=== PATIENT | female | born 1995 | race Caucasian/White ===

== ENCOUNTER 2016-10-23 20:07 | Outpatient (CLI) | payer MEDICAID ==
[~2016-10-23] VITALS: Ht 160 cm; Wt 63.9 kg
[~2016-10-23 20:07] MED LIST: NO MEDS
[2016-10-23 20:34] VITALS: BP 102/61; PULSE 73; RESP 18
[2016-10-23] MEDS ORDERED: FERR134T PO (20:37)
[2016-10-23] MEDS ORDERED: PRENAT PO (20:37)
[2016-10-23 21:39] LABS: ABNORMAL IP MESSAGE 1; BASOPHIL # 0.1 10^3/ul (0.0-0.1); BASOPHILS % 0.5 % (0.0-2.0); EOSINOPHILS # 0.1 10^3/ul (0.0-0.5); EOSINOPHILS % 0.9 % (0.0-7.0); HEMATOCRIT 35.9 % (37.0-47.0); HEMOGLOBIN 11.9 g/dl (12.0-16.0); LYMPHOCYTES # 1.5 10^3/ul (0.8-2.9); MEAN CORPUSCULAR HEMOGLOBIN 31.7 pg (29.0-33.0); MEAN CORPUSCULAR HGB CONC 33.1 g/dl (32.0-37.0); MEAN CORPUSCULAR VOLUME 95.7 fl (82.0-101.0); MEAN PLATELET VOLUME 10.9 fl (7.4-10.4); MONOCYTE # 0.7 10^3/ul (0.3-0.9); NEUTROPHIL # 8.6 10^3/ul (1.6-7.5); NEUTROPHILS % 74.4 % (39.0-77.0); PLATELET COUNT 179 10^3/UL (140-415); RED BLOOD COUNT 3.75 10^6/ul (4.20-5.40); WHITE BLOOD COUNT 11.6 10^3/ul (4.8-10.8)
[2016-10-23 21:47] LABS: POSITIVE DIFF @See below
--- NOTE | 2016-10-23 22:11 | RADRPT ---
PROCEDURE: ULTRASOUND BIOPHYSICAL PROFILE CLINICAL INDICATION: 21-year-old female in labor for viability. TECHNIQUE: Multiple sonographic images were obtained in order to perform a biophysical profile The images were reviewed on a PACS workstation. COMPARISON: None. FINDINGS: The cervix appears closed with a length of 3.6 cm. There is a single viable intrauterine gestation. There is a vertex presentation. Cardiac activity is present at 137 beats per minute. The placenta is anterior. The results of the biophysical profile are as follows: breathing movement = 2/2 Gross body movement = 2/2 tone = 2/2 Qualitative amniotic fluid volume = 2/2 Amniotic fluid index equals 17.3 cm. This yields a biophysical profile score of 8/8. IMPRESSION: Biophysical profile score is 8/8. .Baltazar Gaston MD, MD Date Time Electronically viewed and signed by .Baltazar Gaston MD, MD on 10/23/2016 22:10 ./
--- NOTE | 2016-10-23 22:13 | RADRPT ---
PROCEDURE: ULTRASOUND OBSTETRICAL CLINICAL INDICATION: 21-year-old female in labor for size and date determination. TECHNIQUE: Multiple sonographic images of the pelvis were obtained. The images were reviewed on a PACS workstation. COMPARISON: Ultrasound biophysical profile obtained concurrently. FINDINGS: There is a single viable intrauterine gestation. Cardiac activity is present with 139 beats per min [place]. There is a vertex presentation. Measurements were made in order to determine age. The res ults are as follows: BPD = 8.86 cm, HC = 31.53 cm, AC = 31.74 cm, FL = 6.98 cm. This yields and estimated gestational ag e of approximately 35 weeks 5 days. The estimated date of delivery is November 22, 2016. The EFW = 2741 +/- 411 g (6 lb 1 oz). The GP is 71%. The placenta is anterior. There is no evidence for an abruption or placenta previa. IMPRESSION: 1. Single viable intrauterine gestation of approximately 35 weeks 5 days with vertex presentation. The estimated date of delivery is November 22, 2016. 2. The estimated weight is 2741 +/- 411 g (6 lb 1 oz). The GP is 71%. .Baltazar Gaston MD, Date Time Electronically viewed and signed by .Baltazar Gaston MD, MD on 10/23/2016 22:13 .M/
[2016-10-23 23:06] LABS: ADD UMIC NO; UR ASCORBIC ACID NEGATIVE (NEGATIVE); UR BILIRUBIN (Dip) NEGATIVE (NEGATIVE); UR BLOOD (Dip) NEGATIVE (NEGATIVE); UR CLARITY CLEAR (CLEAR); UR COLOR YELLOW (YELLOW); UR GLUCOSE (Dip) NEGATIVE (NEGATIVE); UR KETONES (Dip) TRACE mg/dL (NEGATIVE); UR LEUKOCYTE ESTERASE (Dip) NEGATIVE Leu/ul (NEGATIVE); UR NITRITE (Dip) NEGATIVE (NEGATIVE); UR SPECIFIC GRAVITY (Dip) 1.016 (1.003-1.030); UR TOTAL PROTEIN (Dip) NEGATIVE (NEGATIVE); UR UROBILINOGEN (Dip) NEGATIVE (NEGATIVE)
[2016-10-23] MEDS ORDERED: BETAMET NA PHOS/AC(6 MG/ML) 5ML INJ IM ONE (23:30)
--- NOTE | 2016-10-24 01:42 | PN ---
Triage Information Date/Time 10/24/16 Reason for visit: Abd/pelvic pain Weeks of Gestation 34w6d /Para primigravida Diabetes: none Hypertention: none Objective Vital Signs Date Time Temp Pulse Resp B/P Pulse Ox O2 Delivery O2 Flow Rate FiO2 10/23/16 20:34 98.4 73 18 102/61 Room Air Heart Rate: 130's Contractions: 6-10 Minutes Apart Results/Medications Result Diagram: 10/23/162121 Results 24 hrs Laboratory Tests Test 10/23/16 21:22 10/23/16 22:00 White Blood Count 11.6 H Red Blood Count 3.75 L Hemoglobin 11.9 L Hematocrit 35.9 L Mean Corpuscular Volume 95.7 Mean Corpuscular Hemoglobin 31.7 Mean Corpuscular Hemoglobin Concent 33.1 Red Cell Distribution Width 13.0 Platelet Count 179 Mean Platelet Volume 10.9 H Neutrophils % 74.4 Lymphocytes % 13.0 L Monocytes % 6.0 Eosinophils % 0.9 Basophils % 0.5 Nucleated Red Blood Cells % 0.0 Neutrophils # 8.6 H Lymphocytes # 1.5 Monocytes # 0.7 Eosinophils # 0.1 Basophils # 0.1 Nucleated Red Blood Cells # 0.0 Urine Color YELLOW Urine Clarity CLEAR Urine pH 7.0 Urine Specific [place] 1.016 Urine Ketones TRACE A Urine Nitrite NEGATIVE Urine Bilirubin NEGATIVE Urine Urobilinogen NEGATIVE Urine Leukocyte Esterase NEGATIVE Urine Hemoglobin NEGATIVE Urine Glucose NEGATIVE Urine Total Protein NEGATIVE Imaging Results BPP 8/8 CVL 3.6 KATHRYN 17.3 EFW 2741 Disposition: Discharge Assessment/Plan A IUP 34w6d PTL P BMZ x1 given RTH for 2nd dose for BMZ tomorrow pm KRYSTAL MAYBERRY MD Oct 24, 2016 00:32
--- NOTE | 2016-10-24 02:23 | TRIAGE ---
OB Triage Datetime Report Generated by CPN: 10/24/2016 02:22 Datetime: 10/23/2016 20:41 Time of Arrival: 10/23/2016 19:55 EGA: 34.6 Arrived By: Wheelchair Arrived From: Home Chief Complaint: c/o cramping and back pain Movement: Present Contractions: Irregular Time Contractions Began: 10/23/2016 17:00 Contractions: q5 Rupture of Membranes: Denies Vaginal Bleeding: None Vaginal Discharge: Denies Recent Sexual Intercouse: Denies Abdominal Trauma: Not Applicable Patient Complaints: Cramping; Back Pain Time Provider Notified: 10/23/2016 20:53 Provider Notified: Dr Bean Initial Plan: EFM,UA,CBC,EFW,BPP,CVL Datetime: 10/23/2016 20:09 Stage of : OB Triage Maternal Assessment Level of Consciousness: Fully Conscious Headache: Denies Blurred Vision: No Respiratory Effort: Unlabored Nausea/Vomiting: Denies RUQ Epigastric Pain: Denies Facial Edema: None Labor Evaluation Frequency: placed Monitor Mode: External Resting Tone [place]: Relaxed Heart Rate FHR Baseline Rate: 135 Monitor Mode: External US Pain Assessment Pain Scale: 8 Pain Presence: Intermittent Pain Type: Cramping; Ache Pain Location: Abdomen; Back
== END 2016-10-23 23:45 | disposition home or self-care (01) ==
LOC: OBT 20:07 → L-D 20:09 → OBT 23:45
PROVIDERS: ATTEND Obstetrics & Gynecology
DX: O26.893 Other specified pregnancy related conditions, third trimester (principal); Z3A.34 34 weeks gestation of pregnancy; R10.2 Pelvic and perineal pain
CPT/HCPCS: 36415; 76815; 76817; 76818; 81003; 85025; Z7500; G0463

== ENCOUNTER 2016-10-25 00:01 | Outpatient (CLI) | payer MEDICAID ==
[~2016-10-25] VITALS: Ht 160 cm; Wt 63.9 kg
[~2016-10-25 00:01] MED LIST changes: +FERR134T PO; -NO MEDS; +PRENAT PO
[2016-10-25 00:46] VITALS: Ht 160 cm; Wt 63.9 kg
[2016-10-25 00:48] VITALS: BP 102/58; PULSE 81; RESP 18
[2016-10-25] MEDS ORDERED: CALC500T91 PO (00:56)
[2016-10-25] MEDS ORDERED: BETAMET NA PHOS/AC(6 MG/ML) 5ML INJ IM ONE (01:00)
--- NOTE | 2016-10-25 01:55 | TRIAGE ---
OB Triage Datetime Report Generated by CPN: 10/25/2016 01:55 Datetime: 10/25/2016 01:05 Stage of : OB Triage Datetime: 10/25/2016 01:02 Stage of : OB Triage Frequency: x4 Monitor Mode: External Duration (sec)2399: 50-100 Quality: Mild Pattern: Normal: <= 5 Contractions in 10 Minutes Resting Tone [place]: Relaxed FHR Baseline Rate: 125 Monitor Mode: External US Variability: Moderate 6-25 bpm Accelerations: 15X15 Decelerations: None Category: Category I Pain Scale: 0 Pain Presence: None/Denies Pain Type: N/A Pain Assessment Comments: Pt continues to deny pain Datetime: 10/25/2016 01:00 Stage of : OB Triage Datetime: 10/25/2016 00:35 Stage of : OB Triage Datetime: 10/25/2016 00:31 Stage of : OB Triage Datetime: 10/25/2016 00:13 Stage of : OB Triage Assessment Type: Triage Level of Consciousness: Fully Conscious DTR's/Clonus: DTRs 2+; No Clonus Headache: Denies Blurred Vision: No Respiratory Effort: Unlabored; Regular Rhythm; Equal Expansion Breath Sounds, Left: Clear and Equal Breath Sounds, Right: Clear and Equal Nausea/Vomiting: Denies RUQ Epigastric Pain: Denies Lower Extremities Edema: None Degree: None Upper Extremities Edema: None Degree: None Facial Edema: None Temperature Route: Oral History of Falling: (0) No Secondary Diagnosis: (0) No Ambulatory Aid: (0) Bedrest/Nurse Assist IV Therapy: (0) No Gait: (0) Normal/Bedrest/Immobile Mental Status: (0) Oriented to Own Ability Pain Scale: 0 Pain Presence: None/Denies Pain Type: N/A Datetime: 10/25/2016 00:12 Stage of : OB Triage Monitor Mode: External Contraction Comments: [place] applied FHR Baseline Rate: 120 Monitor Mode: External US Comments: EFM applied Datetime: 10/25/2016 00:10 Time of Arrival: 10/24/2016 23:50 EGA: 35.0 Arrived By: Ambulatory Arrived From: Home Chief Complaint: Came back for repeat Betamethasone #2 Movement: Present Contractions: Denies/Absent Rupture of Membranes: Denies Vaginal Bleeding: None Vaginal Discharge: Denies Abdominal Trauma: Not Applicable Patient Complaints: None Time Provider Notified: 10/25/2016 00:35 Provider Notified: Initial Plan: NST, Betamethasone #2 Datetime: 10/23/2016 23:26 Stage of : OB Triage Monitor Mode: External Quality: Mild Pattern: Normal: <= 5 Contractions in 10 Minutes Resting Tone [place]: Relaxed FHR Baseline Rate: 120 Monitor Mode: External US FHR Baseline Changes: No Baseline Change Variability: Moderate 6-25 bpm Accelerations: 15X15 Decelerations: None Category: Category I Pain Scale: 0 Pain Presence: None/Denies Pain Type: N/A Datetime: 10/23/2016 22:48 Stage of : OB Triage Frequency: 2-10 Monitor Mode: External Quality: Mild Pattern: Normal: <= 5 Contractions in 10 Minutes Resting Tone [place]: Relaxed FHR Baseline Rate: 125 Monitor Mode: External US Datetime: 10/23/2016 22:21 Stage of : OB Triage Quality: Moderate Pattern: Normal: <= 5 Contractions in 10 Minutes Resting Tone [place]: Relaxed FHR Baseline Rate: 130 Monitor Mode: External US FHR Baseline Changes: No Baseline Change Datetime: 10/23/2016 20:53 Stage of : OB Triage Frequency: 2-10 Monitor Mode: External Quality: Mild Pattern: Normal: <= 5 Contractions in 10 Minutes Resting Tone [place]: Relaxed FHR Baseline Rate: 130 Monitor Mode: External US FHR Baseline Changes: No Baseline Change Variability: Moderate 6-25 bpm Accelerations: 15X15 Decelerations: None Category: Category I Datetime: 10/23/2016 20:41 EGA: 34.6
--- NOTE | 2016-12-29 16:42 | QN ---
Documentation Comment iup 30 weeks pt here for rpt bms course vss exam wnl a/p iuo 30 weeks bms course ROSALIO TELLEZ MD Dec 29, 2016 16:42
== END 2016-10-25 01:15 | disposition home or self-care (01) ==
LOC: OBT 00:01 → L-D 00:02 → OBT 01:15
PROVIDERS: ATTEND Obstetrics & Gynecology
DX: O26.893 Other specified pregnancy related conditions, third trimester (principal); Z3A.35 35 weeks gestation of pregnancy
CPT/HCPCS: 96372; Z7500; G0463; J0702

== ENCOUNTER 2016-11-05 02:26 | Outpatient (CLI) | payer MEDICAID ==
[~2016-11-05] VITALS: Ht 160 cm; Wt 64.3 kg
[~2016-11-05 02:26] MED LIST changes: +CALC500T91 PO
[2016-11-05 03:03] VITALS: BP 110/62; PULSE 70; RESP 18; Ht 160 cm; Wt 64.3 kg
--- NOTE | 2016-11-05 03:35 | PN ---
Triage Information Date/Time Reason for visit: Uterine contractions Weeks of Gestation 36 weeks /Para Diabetes: none Hypertention: none Objective Vital Signs Date Time Temp Pulse Resp B/P Pulse Ox O2 Delivery O2 Flow Rate FiO2 11/05/16 03:03 98.6 70 18 110/62 95 Room Air Heart Rate: 120's Heart Rate Comments Category I Contractions: >10 Minutes Apart Exam Cervix 1 cm Disposition: Discharge Assessment/Plan Not in active labor D/C home JULIETTE WINSTON MD Nov 05, 2016 03:35
== END 2016-11-05 03:40 | disposition home or self-care (01) ==
LOC: OBT 02:26 → L-D 02:28 → OBT 03:40
PROVIDERS: ATTEND Obstetrics & Gynecology
DX: O62.9 Abnormality of forces of labor, unspecified (principal); Z3A.36 36 weeks gestation of pregnancy
CPT/HCPCS: G0463

== ENCOUNTER 2016-11-18 18:11 | Outpatient (CLI) | payer MEDICAID ==
[~2016-11-18] VITALS: Ht 160 cm; Wt 66.9 kg
[2016-11-18 18:21] VITALS: Ht 160 cm; Wt 66.9 kg
[2016-11-18 18:22] VITALS: BP 110/65; PULSE 67; RESP 18
--- NOTE | 2016-11-18 19:09 | RADRPT ---
PROCEDURE: US OB. CLINICAL INDICATION: Ruptured membranes. TECHNIQUE: Multiple sonographic images of the uterus were obtained. The images were revi ewed on a PACS workstation. COMPARISON: No prior studies are available for comparison. FINDINGS: There is a single live intrauterine gestation. heart rate is 129 beats per minute. Measurements were made in order to determine age. The results are as follows: BPD = 9.20 cm. HC = 33.05 cm. AC = 34.45 cm. FL = 7.33 cm. Estimated weight is 3358 +/- 504 grams. LMP growth percentile is 51%. Menstrual age by ultrasound dates is 37 weeks 5 days. The estimated date of delivery is 12/04/2016. Position is cephalic and placenta is anterior grade II. There is no evidence for an abruption or [place] previa. IMPRESSION: 1. Single live intrauterine gestation of 37 weeks 5 days menstrual age by ultrasound dates. 2. The estimated date of delivery is 12/04/2016. RPTAT: QQ .Renaldo Ellsworth MD, Date Time Electronically viewed and signed by .Renaldo Ellsworth MD, on 11/18/2016 19:09 .R/
--- NOTE | 2016-11-18 19:11 | RADRPT ---
PROCEDURE: US biophysical profile. CLINICAL INDICATION: Decreased motion. TECHNIQUE: Multiple sonographic images of the uterus were obtained. The images were revi ewed on a PACS workstation. COMPARISON: No prior studies are available for comparison. FINDINGS: There is a single live intrauterine gestation. heart rate is 134 beats per minute. The position is cephalic. The placenta is anterior grade II with no abruption or previa. The KATHRYN is 13.6 cm. (Normal = 5-20 cm.) Breathing Movement: 2 Gross Body Movement: 2 Tone: 2 Qualitative Amniotic Fluid Volume: 2 TOTAL: 8 IMPRESSION: 1. The biophysical score is 8/8. RPTAT: QQ .Renaldo Ellsworth MD, MD Date Time Electronically viewed and signed by .Renaldo Ellsworth MD, on 11/18/2016 19:11 .R/
--- NOTE | 2016-11-18 21:03 | PN ---
Triage Information Date/Time Reason for visit: SROM Weeks of Gestation 38 weeks and 5 days /Para Diabetes: none Hypertention: none Objective Vital Signs Date Time Temp Pulse Resp B/P Pulse Ox O2 Delivery O2 Flow Rate FiO2 11/18/16 18:22 98.0 67 18 110/65 99 Room Air Heart Rate: 130's Heart Rate Comments Category I Contractions: None Exam Sterile speculum exam no pooling ROM test negative Results/Medications Results 24 hrs Laboratory Tests Test 11/18/16 19:20 Membranes Rupture NEGATIVE Imaging Results BPP 09/16 Disposition: Discharge Assessment/Plan NO SIgn of SROM JULIETTE WINSTON MD Nov 18, 2016 21:03
--- NOTE | 2016-11-18 22:52 | TRIAGE ---
OB Triage Datetime Report Generated by CPN: 11/18/2016 22:52 Datetime: 11/18/2016 20:55 Stage of : OB Triage Datetime: 11/18/2016 20:41 Stage of : OB Triage Datetime: 11/18/2016 19:25 Stage of : OB Triage Pool: Negative ROM Test Kit: VAGINAL SPECIMEN COLLECTED FOR ROM(+). Datetime: 11/18/2016 19:08 Labor Evaluation Frequency: OCCASSIONAL Monitor Mode: External Duration (sec)2399: 50-60 Pattern: Normal: <= 5 Contractions in 10 Minutes Resting Tone [place]: Relaxed Heart Rate FHR Baseline Rate: 135 Monitor Mode: External US Variability: Moderate 6-25 bpm Accelerations: 15X15 Decelerations: None Category: Category I Pain Assessment Pain Scale: 3 Pain Presence: Intermittent Pain Type: Ache Pain Location: Back Pain Relief Measures: Comfort Measures Datetime: 11/18/2016 18:41 Labor Evaluation Frequency: 0 Monitor Mode: External Pattern: Normal: <= 5 Contractions in 10 Minutes Resting Tone [place]: Relaxed Heart Rate FHR Baseline Rate: 130 Monitor Mode: External US Variability: Moderate 6-25 bpm Accelerations: 15X15 Decelerations: None Category: Category I Datetime: 11/18/2016 18:28 Assessment Type: Admission Assessment Maternal Assessment Level of Consciousness: Fully Conscious DTR's/Clonus: DTRs 2+; No Clonus Headache: Denies Blurred Vision: No Respiratory Effort: Unlabored; Regular Rhythm; Equal Expansion Breath Sounds, Left: Clear and Equal Breath Sounds, Right: Clear and Equal Nausea/Vomiting: Denies RUQ Epigastric Pain: Denies Lower Extremities Edema: None Degree: None Upper Extremities Edema: None Degree: None Facial Edema: None Fall Risk Assessment History of Falling: (0) No Secondary Diagnosis: (0) No Ambulatory Aid: (0) Bedrest/Nurse Assist IV Therapy: (0) No Gait: (0) Normal/Bedrest/Immobile Mental Status: (0) Oriented to Own Ability Fall Score: 0 Fall Risk Score Definition: No Risk: No action required Datetime: 11/18/2016 18:27 Time of Arrival: 11/18/2016 18:10 EGA: 38.4 Arrived By: Ambulatory Arrived From: Home Chief Complaint: PT. C/O LEAKING CLEAR VAGINAL FLUID SINCE 0700 Movement: Present Contractions: Occasional Rupture of Membranes: Unsure Vaginal Bleeding: None Vaginal Discharge: Denies Recent Sexual Intercouse: Denies Abdominal Trauma: Not Applicable Patient Complaints: None Time Provider Notified: 11/18/2016 18:35 Provider Notified: DR. ESHAGHIAN Initial Plan: TOCO/US. BPP, EFW, ROM+ Datetime: 11/18/2016 18:17 Stage of : OB Triage Pain Assessment Pain Scale: 2 Pain Presence: Intermittent Pain Type: Contraction Pain Location: Abdomen; Back Pain Relief Measures: Comfort Measures Datetime: 11/18/2016 18:16 Stage of : OB Triage Datetime: 11/05/2016 03:29 Stage of : OB Triage Labor Evaluation Frequency: 0 Resting Tone [place]: Relaxed Heart Rate FHR Baseline Rate: 120 Monitor Mode: External US Variability: Moderate 6-25 bpm Accelerations: 15X15 Decelerations: None Category: Category I Pain Assessment Pain Scale: 0 Pain Presence: None/Denies Pain Type: N/A Membrane Status: Intact Datetime: 11/05/2016 03:00 Labor Evaluation Frequency: X 2 Monitor Mode: External Duration (sec)2399: 60-90 Quality: Mild Pattern: Normal: <= 5 Contractions in 10 Minutes Resting Tone [place]: Relaxed Heart Rate FHR Baseline Rate: 120 Monitor Mode: External US Variability: Moderate 6-25 bpm Accelerations: 15X15 Decelerations: None Category: Category I Pain Assessment Pain Scale: 8 Pain Presence: Intermittent Pain Type: Contraction Pain Location: Abdomen; Back Pain Relief Measures: Comfort Measures Membrane Status: Intact Datetime: 11/05/2016 02:50 Vaginal Exam Dilatation (cms): 1.0 Effacement (%): 30 Station: -2 Exam By: R COHN Datetime: 11/05/2016 02:34 Maternal Assessment Level of Consciousness: Fully Conscious DTR's/Clonus: DTRs 2+; No Clonus Headache: Denies Blurred Vision: No Respiratory Effort: Unlabored; Regular Rhythm; Equal Expansion Breath Sounds, Left: Clear and Equal Breath Sounds, Right: Clear and Equal Nausea/Vomiting: Denies RUQ Epigastric Pain: Denies Facial Edema: None Temperature Route: Axillary Fall Risk Assessment History of Falling: (0) No Secondary Diagnosis: (0) No Ambulatory Aid: (0) Bedrest/Nurse Assist IV Therapy: (0) No Gait: (0) Normal/Bedrest/Immobile Mental Status: (0) Oriented to Own Ability Fall Score: 0 Fall Risk Score Definition: No Risk: No action required Datetime: 11/05/2016 02:33 Time of Arrival: 11/05/2016 02:33 EGA: 36.5 Arrived By: Ambulatory Arrived From: Home Chief Complaint: uc since 129 Movement: Present Contractions: Irregular Time Contractions Began: 11/05/2016 01:30 Rupture of Membranes: Denies Vaginal Discharge: Denies Recent Sexual Intercouse: Denies Abdominal Trauma: Not Applicable Patient Complaints: Contractions Initial Plan: monitors apply, call MD Datetime: 11/05/2016 02:31 Monitor Mode: External US Comments: APPLIED Datetime: 10/25/2016 00:13 Fall Score: 0 Fall Risk Score Definition: No Risk: No action required Datetime: 10/25/2016 00:10 EGA: 35.0 Datetime: 10/23/2016 20:41 EGA: 34.6
--- NOTE | 2016-11-20 14:47 | NSTRPT ---
NST Information Datetime Report Generated by CPN: 11/20/2016 14:46 Datetime: 11/18/2016 08:10 NST Information EGA: 38.4 Test Number: 5 Time on Monitor: 11/18/2016 08:45 Time off Monitor: 11/18/2016 09:18 NST Duration (Min): 33 Reason for NST: Polyhydramnios Test and Monitor Explained: Monitor Explained; Test Explained; Verbalized Understanding Pulse: 68 Resp: 17 SBP: 99 DBP: 58 Test Evaluation NST Interventions: Reposition Patient Patient States Movement: Present Contraction Frequency: irritability, denies FHR Baseline : 135 Variability: Moderate 6-25bpm Accelerations: 15X15 Decelerations: None FHR Category: Category I NST Results: Reactive Comments: To u/s, KATHRYN 23.3cm, cephalic AC 99%, EFW 4076gms (94%) 0920-Pt home undelivered with labor precautions, kick count instructions reviewed and follo w up NST appt given. States understanding and denies further questions at this time. Electronically Signed By E-Signature: with User ID: [id number] Datetime: 11/14/2016 08:30 NST Information EGA: 38.0 Test Number: 4 Time on Monitor: 11/14/2016 08:58 Time off Monitor: 11/14/2016 09:25 NST Duration (Min): 27 Reason for NST: Polyhydramnios Test and Monitor Explained: Monitor Explained; Test Explained; Verbalized Understanding Pulse: 65 Resp: 18 SBP: 98 DBP: 61 Test Evaluation NST Interventions: Reposition Patient Patient States Movement: Present Contraction Frequency: NONE FHR Baseline : 130 Variability: Moderate 6-25bpm Accelerations: 15X15 Decelerations: None FHR Category: Category I NST Results: Reactive Comments: To u/s. KATHRYN 19.3cm. CEPHALIC. 0930-Pt home undelivered with labor precatuions, kick count instructions reviewed, and foll ow up NST appt given. States understanding and denies further questions at this time. Datetime: 11/11/2016 08:12 NST Information EGA: 37.4 Test Number: 3 Time on Monitor: 11/11/2016 08:37 Time off Monitor: 11/11/2016 09:01 NST Duration (Min): 24 Reason for NST: Polyhydramnios Test and Monitor Explained: Monitor Explained; Test Explained; Verbalized Understanding; Breastfee ding Info Given Pulse: 69 Resp: 20 SBP: 97 DBP: 52 Test Evaluation NST Interventions: None Patient States Movement: Present Contraction Frequency: none FHR Baseline : 130 Variability: Moderate 6-25bpm Accelerations: 15X15 Decelerations: None FHR Category: Category I NST Results: Reactive Comments: To u/s. KATHRYN 18.6, cephalic presentation. EFM on. Pt has no questions. 0903-Pt home undelivered with labor precautions, kick count instructions reviewed and follo w up NST appt given. States understanding and denies further questions at this time. Electronically Signed By E-Signature: with User ID: [id number] Datetime: 11/07/2016 08:18 NST Information EGA: 37.0 NST Duration (Min): 38 Datetime: 11/04/2016 08:35 NST Information EGA: 36.4 NST Duration (Min): 31
--- NOTE | 2016-11-20 15:24 | NSTRPT ---
NST Information Datetime Report Generated by CPN: 11/20/2016 15:23 Datetime: 11/14/2016 08:30 Electronically Signed By E-Signature: with User ID: [id number]
== END 2016-11-18 21:10 | disposition home or self-care (01) ==
LOC: OBT 18:11 → L-D 18:14 → OBT 21:10
PROVIDERS: ATTEND Obstetrics & Gynecology
DX: O42.92 Full-term premature rupture of membranes, unspecified as to length of time between rupture and onset of labor (principal); Z3A.38 38 weeks gestation of pregnancy
CPT/HCPCS: 76815; 76818; 84112; Z7500; G0463

== ENCOUNTER 2016-11-26 09:12 | Inpatient (IN) | payer MEDICAID ==
[~2016-11-26] VITALS: Ht 160 cm; Wt 67.7 kg
[~2016-11-26 09:12] MED LIST changes: +METHYLERGONOVINE 0.2 MG INJ ONE
[2016-11-26 09:26] VITALS: Ht 160 cm; Wt 67.7 kg
[2016-11-26 09:27] VITALS: BP 100/62; PULSE 73; RESP 18
--- NOTE | 2016-11-26 11:38 | RADRPT ---
PROCEDURE: OB ultrasound for biophysical profile CLINICAL INDICATION: labor TECHNIQUE: Multiple sonographic images of the pelvis were obtained. Transabdominal views of the g ravid uterus are available for review. The images were reviewed on a PACS workstation. COMPARISON: None FINDINGS: breathing movement = 2/2 tone = 2/2 motion = 2/2 KATHRYN = 2/2 KATHRYN = 16.6 cm Single live intrauterine with cardiac activity of 154 bpm. position is cephal ic. The placenta is anterior. IMPRESSION: 1. Single live intrauterine gestation. 2. Biophysical profile = 8/8. 3. KATHRYN = 16.6 cm. RPTAT: HH .Abby Borges MD, MD Date Time Electronically viewed and signed by .Abby Borges MD, on 11/26/2016 11:38 .G/
--- NOTE | 2016-11-26 11:51 | RADRPT ---
PROCEDURE: US OB. CLINICAL INDICATION: labor TECHNIQUE: Multiple sonographic images of the pelvis were obtained. Transabdominal imaging only w as performed. The images were reviewed on a PACS workstation. COMPARISON: No prior studies are available for comparison. FINDINGS: There is a single live intrauterine gestation. Cardiac activity is present with 136 beats per minut e. position is cephalic. Measurements were made in order to determine age. The results are as follows: BPD = 9.26 cm HC = 33.45 cm AC = 36.27 cm FL = 7.57 cm. Estimated gestational age of approximately 38 weeks 5 days. The estimated date of delivery is 12/05/2016. The EFW = 3748 g, 65 %ile. The placenta is anterior. There is no evidence for an abruption or placenta previa. There are no adnexal masses. IMPRESSION: 1. Single live intrauterine gestation of approximately 38 weeks 5 days, by ultrasound criteria. 2. The estimated date of delivery is 12/05/2016. 3. The estimated weight is 3748 g, 65 %ile. RPTAT: HH .Abby Borges MD, Date Time Electronically viewed and signed by .Abby Borges MD, on 11/26/2016 11:50 .G/
--- NOTE | 2016-11-26 13:22 | TRIAGE ---
OB Triage Datetime Report Generated by CPN: 11/26/2016 13:22 Datetime: 11/26/2016 13:00 Stage of : OB Triage Maternal Assessment Level of Consciousness: Fully Conscious Labor Evaluation Frequency: 1UC/HR Monitor Mode: External Duration (sec)2399: 50 Quality: Mild Resting Tone Ohlman: Relaxed Heart Rate FHR Baseline Rate: 125 Monitor Mode: External US Variability: Moderate 6-25 bpm Accelerations: 15X15 Decelerations: None Pain Assessment Pain Scale: 0 Pain Goal: 3 Datetime: 11/26/2016 12:30 Stage of : OB Triage Maternal Assessment Level of Consciousness: Fully Conscious Labor Evaluation Frequency: 1UC/HR Monitor Mode: External Duration (sec)2399: 100 Quality: Mild Resting Tone [place]: Relaxed Heart Rate FHR Baseline Rate: 125 Monitor Mode: External US Variability: Moderate 6-25 bpm Accelerations: 15X15 Decelerations: None Pain Assessment Pain Scale: 0 Pain Goal: 3 Datetime: 11/26/2016 11:30 Stage of : OB Triage Maternal Assessment Level of Consciousness: Fully Conscious Labor Evaluation Frequency: 1UC/HR Monitor Mode: External Duration (sec)2399: 150 Quality: Mild Resting Tone [place]man: Relaxed Heart Rate FHR Baseline Rate: 125 Monitor Mode: External US Variability: Moderate 6-25 bpm Accelerations: 15X15 Decelerations: None Pain Assessment Pain Scale: 0 Pain Goal: 3 Datetime: 11/26/2016 11:02 Membrane Status: Ruptured Datetime: 11/26/2016 10:30 Stage of : OB Triage Maternal Assessment Level of Consciousness: Fully Conscious Labor Evaluation Frequency: 2UC/HR Monitor Mode: External Duration (sec)2399: 110-120 Quality: Mild Resting Tone [place]: Relaxed Heart Rate FHR Baseline Rate: 125 Monitor Mode: External US Variability: Moderate 6-25 bpm Accelerations: 15X15 Decelerations: None Category: Category I Pain Assessment Pain Scale: 0 Pain Goal: 3 Datetime: 11/26/2016 10:07 Vaginal Exam Dilatation (cms): 2.0 Effacement (%): 70 Station: -2 Exam By: RAMONITA Vaginal Bleeding: Scant Cervix, Consistency: Soft Cervix, Position: Anterior Datetime: 11/26/2016 09:44 EGA: 39.5 Datetime: 11/26/2016 09:24 Assessment Type: Triage Maternal Assessment Level of Consciousness: Fully Conscious DTR's/Clonus: DTRs 2+; No Clonus Headache: Denies Blurred Vision: No Respiratory Effort: Unlabored; Regular Rhythm; Equal Expansion Breath Sounds, Left: Clear and Equal Breath Sounds, Right: Clear and Equal Nausea/Vomiting: Denies RUQ Epigastric Pain: Denies Lower Extremities Edema: None Degree: None Upper Extremities Edema: None Degree: None Facial Edema: None Fall Risk Assessment History of Falling: (0) No Secondary Diagnosis: (0) No Ambulatory Aid: (0) Bedrest/Nurse Assist IV Therapy: (0) No Gait: (0) Normal/Bedrest/Immobile Mental Status: (0) Oriented to Own Ability Fall Score: 0 Fall Risk Score Definition: No Risk: No action required Datetime: 11/26/2016 09:23 Time of Arrival: 11/26/2016 09:10 EGA: 39.5 Arrived By: Ambulatory Arrived From: Home Chief Complaint: C/O SPOTTING AND LEAKING Movement: Present Contractions: Denies/Absent Rupture of Membranes: Denies Vaginal Bleeding: None Vaginal Discharge: Denies Recent Sexual Intercouse: Denies Abdominal Trauma: Not Applicable Patient Complaints: None Time Provider Notified: 11/26/2016 09:56 Provider Notified: ESHAGHIAN Initial Plan: EFM/BPP/EFW/ROM PLUS/SVE Datetime: 11/26/2016 09:19 Monitor Mode: External Monitor Mode: External US Datetime: 11/18/2016 20:58 Stage of : OB Triage Datetime: 11/18/2016 18:28 Fall Score: 0 Fall Risk Score Definition: No Risk: No action required Datetime: 11/18/2016 18:27 EGA: 38.4 Datetime: 11/05/2016 02:34 Fall Score: 0 Fall Risk Score Definition: No Risk: No action required Datetime: 11/05/2016 02:33 EGA: 36.5 Datetime: 10/25/2016 00:13 Fall Score: 0 Fall Risk Score Definition: No Risk: No action required Datetime: 10/25/2016 00:10 EGA: 35.0 Datetime: 10/23/2016 20:41 EGA: 34.6
[2016-11-26] MEDS ORDERED: LACTATED RINGER'S 1,000 ML IV PRN (13:37)
[2016-11-26 13:59] LABS: BASOPHIL # 0.1 10^3/ul (0.0-0.1); BASOPHILS % 0.7 % (0.0-2.0); EOSINOPHILS # 0.1 10^3/ul (0.0-0.5); EOSINOPHILS % 0.5 % (0.0-7.0); HEMOGLOBIN 13.7 g/dl (12.0-16.0); LYMPHOCYTES # 1.5 10^3/ul (0.8-2.9); LYMPHOCYTES % 13.8 % (15.0-51.0); MEAN CORPUSCULAR HGB CONC 35.1 g/dl (32.0-37.0); MEAN PLATELET VOLUME 11.7 fl (7.4-10.4); MONOCYTE # 0.6 10^3/ul (0.3-0.9); MONOCYTES % 5.4 % (0.0-11.0); NEUTROPHIL # 8.2 10^3/ul (1.6-7.5); NEUTROPHILS % 75.5 % (39.0-77.0); PLATELET COUNT 183 10^3/UL (140-415); RED BLOOD COUNT 4.15 10^6/ul (4.20-5.40); RED CELL DISTRIBUTION WIDTH 12.9 % (11.5-14.5); WHITE BLOOD COUNT 10.8 10^3/ul (4.8-10.8)
[2016-11-26] MEDS ORDERED: METHYLERGONOVINE 0.2 MG INJ IM PRN (14:00)
[2016-11-26] MEDS ORDERED: IBUPROFEN 600 MG TAB PO PRN ×2 (14:00)
[2016-11-26] MEDS ORDERED: OXYTOCIN 30 UNITS/LR 500 ML IV PRN (14:00)
[2016-11-26] MEDS ORDERED: OXYTOCIN 30 UNITS/LR 500 ML IV SCH ×6 (14:00)
[2016-11-26] MEDS ORDERED: LIDOCAINE 1% (MPF) 30 ML INJ INJ PRN (14:00)
[2016-11-26] MEDS ORDERED: MISOPROSTOL 200 MCG TAB PR PRN (14:00)
[2016-11-26] MEDS ORDERED: CARBOPROST 250 MCG INJ IM PRN (14:00)
[2016-11-26 14:15] LABS: INR 0.87; PROTIME 11.8 Sec (12.2-14.2); PT RATIO 0.9
[2016-11-26] MEDS: LACTATED RINGER'S 1,000 ML IV SCH ×3 (14:15→17:01)
[2016-11-26 14:16] LABS: PARTIAL THROMBOPLASTIN TIME 28.1 Sec (25.0-35.0)
[2016-11-26] MEDS ORDERED: DIPHENHYDRAMINE 50 MG INJ IV PRN (16:30)
[2016-11-26] MEDS ORDERED: NALOXONE (0.4 MG/ML) INJ IV PRN (16:30)
--- NOTE | 2016-11-26 19:03 | PREOPHP ---
DATE OF ADMISSION: 11/26/2016 HISTORY OF PRESENT ILLNESS: Ms. Kendy Sylvester is a 21-year-old 1, para 0, EDC 11/28/2016, int rauterine at 39 weeks' and 5 days' gestational age, presented to triage today complaining of spontaneous rupture of membranes. A ROM plus test was positive. She was admitted with a vaginal exam of 2, 70, -2. She is currently on Pitocin for labor augmentation. PAST MEDICAL HISTORY: None. MEDICATIONS: vitamins. PAST SURGICAL HISTORY: None. OBSTETRIC HISTORY: Primigravid. GYNECOLOGIC HISTORY: 11, regular, 3 to 4 days. Denies any sexually transmitted diseases. Sexually active with 1 partner. SOCIAL HISTORY: Denies any smoking, drugs or alcohol. FAMILY HISTORY: None. REVIEW OF SYSTEMS: All within normal except history of present illness. PHYSICAL EXAMINATION: HEENT: Within normal. LUNGS: CTA bilateral. CARDIOVASCULAR: S1, S2, regular rhythm. ABDOMEN: Gravid, nontender. Negative CVA bilateral. EXTREMITIES: Negative edema. No calf tenderness. VAGINAL: 2 to 3 cm dilated, 70%, -1 station. ASSESSMENT: A 21-year-old 1, para 0, intrauterine at 39 weeks' and 5 days' gestat ional age, premature rupture of membranes, currently on Pitocin for labor augmentation. PLAN: Expect vaginal delivery. Dictated By: KYLER LAKHANI/FERNIE Conf#: [id number] DID#: [id number]
[2016-11-26] MEDS ORDERED: AMPICILLIN 2 GM/NS (PMX) 100 ML IV ONE (20:30)
[2016-11-27] MEDS: AMPICILLIN 1 GM/NS (PMX) 50 ML IV SCH ×6 (00:23→18:45)
[2016-11-27] MEDS: FENTAnyl 2MCG/ML-ROPIV 0.2% 100 ML BAG EPI SCH ×3 (01:43→13:05)
[2016-11-27] MEDS: LACTATED RINGER'S 1,000 ML IV SCH ×4 (01:44→15:30)
[2016-11-27] MEDS: ONDANSETRON 4 MG INJ IV PRN ×2 (07:58→15:15)
[2016-11-27] MEDS ORDERED: MINERAL OIL LIGHT 10 ML VIAL TOP ONE (10:30)
[2016-11-27] MEDS ORDERED: ACETAMINOPHEN 325 MG TAB PO ONE (15:30)
[2016-11-27] MEDS: LACTATED RINGER'S 1,000 ML IV* SCH ×2 (18:18→23:18)
--- NOTE | 2016-11-27 18:18 | LDN ---
Date/Time of Note Date/Time of Note DATE: 11/27/16 TIME: 18:14 Delivery Summary VAVD secondary to maternal exhaustion at plus 3 station, x 1 pull for 5 seconds no complication Weeks of Gestation 38 Assisted Vaginal Delivery: Vacuum Placenta Delivered: Spontaneously Meconium: none Episiotomy: Yes Laceration repair: 1st degree vaginal laceration with rmle repair with 2-0 and 3-0 chromc 2 vaginal pack placed in vagina for positive oozing Anesthesia type: Local Estimated blood loss: 400 Sponge & Needle done & correct: Yes All needle counts correct: Yes Count Comment: [address] Problems: Delivery Information Sex Sex: female Apgars 1 Minute: 9 5 Minute: 9 Suctioning Nose & mouth suctioned at jessica: No Delee suction performed: No Umbilical Cord Umbilical cord with: 3 Vessels Cord presentations: no nuchal cord Cord Blood was obtained: Yes KYLER FLOYD MD Nov 27, 2016 18:18
[2016-11-27] MEDS ORDERED: CARBOPROST 250 MCG INJ IM PRN (18:30)
[2016-11-27] MEDS ORDERED: OXYCODONE/ASPIRIN (4.88/325) TAB PO PRN ×2 (18:30)
[2016-11-27] MEDS ORDERED: BENZOCAINE 20% 56 ML SPRAY TOP PRN (18:30)
[2016-11-27] MEDS ORDERED: ONDANSETRON 4 MG INJ IV PRN (18:30)
[2016-11-27] MEDS ORDERED: DIBUCAINE 1% 30 GM OINT PR PRN (18:30)
[2016-11-27] MEDS ORDERED: METHYLERGONOVINE 0.2 MG INJ IM PRN (18:30)
[2016-11-27] MEDS ORDERED: MISOPROSTOL 200 MCG TAB PR PRN (18:30)
[2016-11-27] MEDS ORDERED: OXYTOCIN 30 UNITS/LR 500 ML IV PRN (18:30)
[2016-11-27] MEDS ORDERED: ACETAMINOPHEN 325 MG TAB PO PRN (18:30)
[2016-11-27] MEDS ORDERED: LANOLIN 7 GM TUBE TOP PRN (18:30)
[2016-11-27] MEDS ORDERED: CEFAZOLIN 2 GM/50 ML (PMX) 100 ML IVPB ONE (18:35)
[2016-11-27] MEDS: CEFAZOLIN 2 GM/50 ML (PMX) 50 ML IV SCH (18:37)
[2016-11-27 21:15] VITALS: BP 117/75; PULSE 80; RESP 18
[2016-11-27] MEDS: SENNA/DOCUSATE NA (8.6MG/50MG) TAB PO SCH (22:43)
[2016-11-27] MEDS: IBUPROFEN 600 MG TAB PO SCH (23:05)
[2016-11-27] MEDS: WITCH HAZEL/GLYCERIN PAD PR PRN ×2 (23:18→23:19)
[2016-11-28] VITALS: BP 106/70; PULSE 73; RESP 18
[2016-11-28 04:00] VITALS: BP 110/65; PULSE 75; RESP 18
[2016-11-28] MEDS: IBUPROFEN 600 MG TAB PO SCH ×3 (05:09→17:46)
[2016-11-28] MEDS: CEFAZOLIN 2 GM/50 ML (PMX) 50 ML IV SCH ×2 (05:11→13:33)
[2016-11-28] MEDS: LACTATED RINGER'S 1,000 ML IV* SCH ×2 (05:12→13:33)
[2016-11-28 07:30] VITALS: BP 100/68; PULSE 76; RESP 16
[2016-11-28 08:54] LABS: BASOPHILS % 0.2 % (0.0-2.0); EOSINOPHILS # 0.1 10^3/ul (0.0-0.5); EOSINOPHILS % 0.4 % (0.0-7.0); HEMATOCRIT 27.6 % (37.0-47.0); HEMOGLOBIN 9.2 g/dl (12.0-16.0); LYMPHOCYTES # 1.3 10^3/ul (0.8-2.9); LYMPHOCYTES % 6.7 % (15.0-51.0); MEAN CORPUSCULAR HEMOGLOBIN 31.8 pg (29.0-33.0); MEAN CORPUSCULAR HGB CONC 33.3 g/dl (32.0-37.0); MEAN CORPUSCULAR VOLUME 95.5 fl (82.0-101.0); MEAN PLATELET VOLUME 11.8 fl (7.4-10.4); MONOCYTE # 1.2 10^3/ul (0.3-0.9); MONOCYTES % 6.1 % (0.0-11.0); NEUTROPHILS % 84.7 % (39.0-77.0); PLATELET COUNT 135 10^3/UL (140-415); RED BLOOD COUNT 2.89 10^6/ul (4.20-5.40); WHITE BLOOD COUNT 20.1 10^3/ul (4.8-10.8)
[2016-11-28] MEDS: SENNA/DOCUSATE NA (8.6MG/50MG) TAB PO SCH ×2 (10:02→22:02)
[2016-11-28 12:00] VITALS: BP 100/68; PULSE 76; RESP 16
[2016-11-28 15:49] VITALS: BP 99/68; PULSE 68; RESP 16
--- NOTE | 2016-11-28 19:21 | QN ---
Documentation Comment Progress note day 1 Patient was seen and evaluated awake alert oriented 3 positive Ramirez clear gravity Vital signs stable afebrile Abdomen soft nontender negative distention uterine fundus firm below umbilicus extremity negative edema no calf tenderness Vaginal exam Vaginal packing removed no active vaginal bleeding however positive edema bilateral labia minora Significant labs elevated white blood cell Assessment status post vaginal delivery day 1 Edema bilateral labia minora Plan Iron supplement Repeat CBC in a.m. Consider Ramirez removal after evaluation in a.m. Discussed with laborist /KYLER Fabian MD Nov 28, 2016 19:20
[2016-11-28 20:00] VITALS: BP 100/56; PULSE 72; RESP 18
[2016-11-28] MEDS: FERROUS SULFATE (EC) 325 MG TAB PO SCH (22:02)
[2016-11-29] MEDS: IBUPROFEN 600 MG TAB PO SCH ×5 (00:01→23:43)
[2016-11-29] MEDS: LACTATED RINGER'S 1,000 ML IV* SCH ×2 (01:37→10:18)
[2016-11-29 04:35] VITALS: BP 100/56; PULSE 68; RESP 18
[2016-11-29 08:00] VITALS: BP 115/68; PULSE 65; RESP 18
[2016-11-29 09:17] LABS: BASOPHIL # 0.1 10^3/ul (0.0-0.1); BASOPHILS % 0.5 % (0.0-2.0); EOSINOPHILS # 0.2 10^3/ul (0.0-0.5); EOSINOPHILS % 1.5 % (0.0-7.0); HEMATOCRIT 26.3 % (37.0-47.0); HEMOGLOBIN 8.9 g/dl (12.0-16.0); LYMPHOCYTES # 1.5 10^3/ul (0.8-2.9); LYMPHOCYTES % 11.6 % (15.0-51.0); MEAN CORPUSCULAR HEMOGLOBIN 32.7 pg (29.0-33.0); MEAN CORPUSCULAR HGB CONC 33.8 g/dl (32.0-37.0); MEAN CORPUSCULAR VOLUME 96.7 fl (82.0-101.0); MEAN PLATELET VOLUME 11.2 fl (7.4-10.4); MONOCYTE # 0.7 10^3/ul (0.3-0.9); MONOCYTES % 5.4 % (0.0-11.0); NEUTROPHIL # 10.2 10^3/ul (1.6-7.5); NEUTROPHILS % 77.1 % (39.0-77.0); PLATELET COUNT 134 10^3/UL (140-415); RED BLOOD COUNT 2.72 10^6/ul (4.20-5.40); RED CELL DISTRIBUTION WIDTH 13.1 % (11.5-14.5); WHITE BLOOD COUNT 13.2 10^3/ul (4.8-10.8)
[2016-11-29] MEDS: SENNA/DOCUSATE NA (8.6MG/50MG) TAB PO SCH ×2 (10:03→21:20)
[2016-11-29] MEDS: FERROUS SULFATE (EC) 325 MG TAB PO SCH ×2 (10:03→21:20)
--- NOTE | 2016-11-29 10:13 | PN ---
Date/Time of Note Date/Time of Note DATE: 11/29/16 TIME: 10:06 OB Subjective Subjective Subjective November 29, 2016 day 2 Doing fairly well Developed edema of vulvar area,has Ramirez catheter in place Urine is clear Afebrile Ambulatory Chest Clear Breasts are soft , Nipples are intact Abdomen is soft Fundus is firm Moderate amount of lochia No calf tenderness No ankle edema Laboratory Tests Test 11/29/16 08:59 White Blood Count 13.210^3/ul Red Blood Count 2.7210^6/ul Hemoglobin 8.9g/dl Hematocrit 26.3% Mean Corpuscular Volume 96.7fl Mean Corpuscular Hemoglobin 32.7pg Mean Corpuscular Hemoglobin Concent 33.8g/dl Red Cell Distribution Width 13.1% Platelet Count 99520^3/UL Mean Platelet Volume 11.2fl Neutrophils % 77.1% Lymphocytes % 11.6% Monocytes % 5.4% Eosinophils % 1.5% Basophils % 0.5% Nucleated Red Blood Cells % 0.0/100WBC Neutrophils # 10.210^3/ul Lymphocytes # 1.510^3/ul Monocytes # 0.710^3/ul Eosinophils # 0.210^3/ul Basophils # 0.110^3/ul Nucleated Red Blood Cells # 0.010^3/ul Current Medications Medications (Trade) Dose Ordered Sig/Jazmyn Route PRN Reason Start Time Stop Time Status Last Admin Dose Admin Lactated Ringer's 1,000 ml @ 125 mls/hr Q8H IV 11/26/16 13:37 11/27/16 18:43 DC 11/27/16 15:30 Oxytocin/Lactated Ringer's 500 ml @ 0 mls/hr TITRATE IV 11/26/16 14:00 11/27/16 22:31 DC 11/26/16 14:17 Lidocaine 30 ml 30 ml ONCE PRN INJ EPISIOTOMY/TEARING 11/26/16 14:00 11/27/16 22:31 DC Oxytocin/Lactated Ringer's 500 ml @ 125 mls/hr ONCE -MAY REPEAT X1 IV 11/26/16 14:00 11/27/16 22:31 DC Oxytocin/Lactated Ringer's 500 ml @ 125 mls/hr ONCE IV 11/26/16 14:00 11/27/16 22:31 DC 11/27/16 17:45 Ibuprofen 600 mg 600 mg ONCE PRN PO Mild Pain (Pain Score 1-3) 11/26/16 14:00 11/26/16 20:00 DC Lactated Ringer's 1,000 ml @ 2,000 mls/hr Q30M PRN IV PRE-EPIDURAL BOLUS 11/26/16 13:37 11/27/16 22:31 DC Oxytocin/Lactated Ringer's 500 ml @ 0 mls/hr ONCE PRN IV For Hemorrhage Management 11/26/16 14:00 11/27/16 22:31 DC Methylergonovine Maleate (Methergine) 0.2 mg ONCE PRN IM VAGINAL BLEEDING 11/26/16 14:00 11/27/16 18:44 DC 11/27/16 17:35 Carboprost Tromethamine (Hemabate) 250 mcg ONCE PRN IM VAGINAL BLEEDING 11/26/16 14:00 11/27/16 18:43 DC Misoprostol 1000 mcg 1,000 mcg ONCE PRN DC VAGINAL BLEEDING 11/26/16 14:00 11/27/16 18:44 DC Oxytocin/Lactated Ringer's 500 ml @ 0 mls/hr TITRATE IV 11/26/16 14:00 11/27/16 22:31 DC Oxytocin/Lactated Ringer's 500 ml @ 125 mls/hr ONCE -MAY REPEAT X1 IV 11/26/16 14:00 11/27/16 22:31 DC Oxytocin/Lactated Ringer's 500 ml @ 125 mls/hr ONCE IV 11/26/16 14:00 11/27/16 18:45 DC Ibuprofen (Motrin) 600 mg ONCE PRN PO Mild Pain (Pain Score 1-3) 11/26/16 14:00 11/27/16 22:31 DC 11/27/16 20:18 Naloxone HCl (Narcan) 0.1 mg Q2M PRN IV FOR RESP RATE 8 OR LESS 11/26/16 16:30 11/27/16 16:29 DC Diphenhydramine HCl (Benadryl) 25 mg Q6H PRN IV ITCHING 11/26/16 16:30 11/27/16 16:29 DC Ondansetron HCl (Zofran Inj) 4 mg Q6H PRN IV NAUSEA AND/OR VOMITING 11/26/16 16:30 11/27/16 16:29 DC 11/27/16 15:15 Fentanyl/ Ropivacaine 100 ml 100 ml EPIDURAL INFUSION EPI 11/26/16 16:30 11/27/16 22:31 DC 11/27/16 13:05 Ampicillin 100 ml @ 100 mls/hr ONCE ONCE IV 11/26/16 20:30 11/26/16 21:29 DC 11/26/16 20:53 Ampicillin (Ampicillin 1 Gm/ NS (Pmx)) 50 ml @ 100 mls/hr Q4H IV 11/27/16 00:30 11/27/16 18:49 DC 11/27/16 15:52 Mineral Oil (Muri-Lube) ONCE ONCE TOP 11/27/16 10:30 11/27/16 10:36 DC Acetaminophen 650 mg 650 mg ONCE ONCE PO 11/27/16 15:30 11/27/16 15:31 DC 11/27/16 15:26 Lactated Ringer's 1,000 ml @ 125 mls/hr Q8H IV* 11/27/16 18:18 11/28/16 13:33 Cefazolin Sodium/ Dextrose (Ancef 2 Gm/50 ml (Pmx)) 50 ml @ 100 mls/hr Q8 IV 11/27/16 22:00 11/28/16 14:29 DC 11/28/16 13:33 Ibuprofen (Motrin) 600 mg Q6 PO 11/28/16 00:00 11/29/16 00:01 Oxycodone/Aspirin (Percodan) 1 tab Q3H PRN PO PAIN LEVEL 1-5 11/27/16 18:30 Oxycodone/Aspirin (Percodan) 2 tab Q3H PRN PO PAIN LEVEL 6-10 11/27/16 18:30 Ondansetron HCl (Zofran Inj) 4 mg Q6H PRN IV NAUSEA AND/OR VOMITING 11/27/16 18:30 Senna/Docusate Sodium (Senokot-S) 1 tab BID PO 11/27/16 21:00 11/29/16 10:03 Witch Sofía/ Glycerin (Tucks Pads) 1 pad BEDSIDE MEDICATION PRN DC HEMORRHOID/EPISIOTMY PAIN 11/27/16 18:30 11/27/16 23:19 Benzocaine (Dermoplast [place]) 1 spray BEDSIDE MEDICATION PRN TOP HEMORRHOID/EPISIOTMY PAIN 11/27/16 18:30 11/27/16 23:20 Dibucaine (Nupercainal) 1 applic BEDSIDE MEDICATION PRN DC HEMORRHOID/EPISIOTMY PAIN 11/27/16 18:30 Lanolin (Pvg-R-Qedqfr) 1 applic BEDSIDE MEDICATION PRN TOP BEDSIDE FOR SHAILA TO NIPPLES 11/27/16 18:30 11/27/16 23:20 Acetaminophen 650 mg 650 mg Q4H PRN PO ELEVATED TEMPERATURE 11/27/16 18:30 Oxytocin/Lactated Ringer's 500 ml @ 0 mls/hr ONCE PRN IV For Hemorrhage Management 11/27/16 18:30 Methylergonovine Maleate (Methergine) 0.2 mg ONCE PRN IM VAGINAL BLEEDING 11/27/16 18:30 Carboprost Tromethamine (Hemabate) 250 mcg ONCE PRN IM VAGINAL BLEEDING 11/27/16 18:30 Misoprostol 1000 mcg 1,000 mcg ONCE PRN DC VAGINAL BLEEDING 11/27/16 18:30 Cefazolin Sodium/ Dextrose (Ancef 2 Gm/50 ml (Pmx)) 100 ml @ ud STK-MED ONCE IVPB 11/27/16 18:35 11/27/16 18:36 DC Ferrous Sulfate (Ferrous Sulfate (Ec)) 325 mg BID PO 11/28/16 21:00 11/29/16 10:03 Methylergonovine Maleate (Methergine) 0.2 mg STK-MED ONCE .ROUTE 11/26/16 07:00 11/28/16 20:13 DC New born is doing well, Breast feeding Due to edema of the genital area will keep the patient today and if necessary we might discharge her tomorrow after removing the Ramirez catheter. KYLE MAZARIEGOS MD Nov 29, 2016 10:13
[2016-11-29 16:00] VITALS: BP 111/62; PULSE 82; RESP 18
[2016-11-29 19:35] VITALS: BP 103/75; PULSE 71; RESP 18
[2016-11-30 03:50] VITALS: BP 114/71; PULSE 61; RESP 18
[2016-11-30] MEDS: IBUPROFEN 600 MG TAB PO SCH ×2 (05:28→12:25)
[2016-11-30] MEDS: SENNA/DOCUSATE NA (8.6MG/50MG) TAB PO SCH (08:59)
[2016-11-30] MEDS: FERROUS SULFATE (EC) 325 MG TAB PO SCH (08:59)
[2016-11-30 09:55] VITALS: BP 108/62; PULSE 66; RESP 18
== END 2016-11-30 15:47 | disposition home or self-care (01) | DRG 775 ==
LOC: L-D 09:12 → OBT 09:12 → L-D 12:00 → OBT 12:08 → PP1 11-27 21:58
PROVIDERS: ADMIT Obstetrics & Gynecology; ATTEND Obstetrics & Gynecology
PROC: 10D07Z6 Extraction of Products of Conception, Vacuum, Via Natural or Artificial Opening (ICD-10-PCS; principal; 2016-11-26)
PROC: 0UQGXZZ Repair Vagina, External Approach (ICD-10-PCS; 2016-11-26)
PROC: 3E0P3VZ Introduction of Hormone into Female Reproductive, Percutaneous Approach (ICD-10-PCS; 2016-11-26)
DX: O71.4 Obstetric high vaginal laceration alone (principal); Z37.0 Single live birth; Z3A.39 39 weeks gestation of pregnancy
CPT/HCPCS: 62319; 76815; 76818; 84112; 85025; 85610; 85730; 86592; 86900; 86901; 87340; G0463; J0290; J0690; J2210; J2405; J2590; J3010; J7120